=== PATIENT | female | born 1985 | race Asian ===

== ENCOUNTER 2018-09-07 08:16 | Emergency (ER) | payer OTHER ==
[2018-09-07 08:36] VITALS: BP 111/72; PULSE 95; TEMP 99; BMI 22.2
[2018-09-07] MEDS ORDERED: ALBUTEROL SO4 2.5/IPRATROPIUM 0.5 INH SOL 3 ML VIAL.NEB. NEB ONE ×2 (09:08→09:11)
--- NOTE | 2018-09-07 09:15 | PDOC ---
History of Present Illness - General Chief Complaint: Cold Symptoms Stated Complaint: COUGH Time Seen by Provider: 09/07/18 08:50 History Source: Patient Exam Limitations: No Limitations - History of Present Illness Initial Comments: 09/07/18 09:09 32 yr female with c/o cough for 3 days . no fever no chills, taking robitussin no relief. Pt has history of RA on folic acid, methotrexate, prednisone. pt denies chest pain or shortness of breath. Past History - Past Medical History Allergies/Adverse Reactions: Allergies Allergy/AdvReac Type Severity Reaction Status Date / Time No Known Allergies Allergy Verified 09/07/18 09:08 Home Medications: Ambulatory Orders NK [No Known Home Medication] 09/07/18 COPD: No CHF: No DVT: No Thyroid Disease: No Other medical history: RHEUMATOID ARTHRITIS - Surgical History Appendectomy: No Cholecystectomy: No GI Surgery: No - Immunization History Immunization Up to Date: No - Suicide/Smoking/Psychosocial Hx Smoking History: Never smoked Have you smoked in the past 12 months: No Information on smoking cessation initiated: No Hx Alcohol Use: No Drug/Substance Use Hx: No Substance Use Type: None Respiratory Specific PMHX - Complaint Specific PMHX Angina: No Bronchitis: No Pneumonia: No Pulmonary Embolus: No TB (Tuberculosis): No Review of Systems - Review of Systems Able to Perform ROS?: Yes Is the patient limited [place] proficient: No Constitutional: No: Symptoms Reported HEENTM: No: Symptoms Reported Respiratory: Yes: Symptoms reported, Cough. No: Shortness of Breath, SOB with Exertion, SOB at Rest, Wheezing, Productive cough Cardiac (ROS): No: Symptoms Reported ABD/GI: No: Symptoms Reported *Physical Exam - Vital Signs Last Vital Signs Temp Pulse Resp BP Pulse Ox 99.0 F 95 H 18 111/72 97 09/07/18 08:22 09/07/18 08:22 09/07/18 08:22 09/07/18 08:22 09/07/18 08:22 - Physical Exam General Appearance: Yes: Nourished, Appropriately Dressed HEENT: positive: EOMI, TARAS, TMs Normal, Nasal Congestion Neck: positive: Supple. negative: Tender Respiratory/Chest: positive: Lungs Clear, Normal Breath Sounds, Other (hoarse cough ). negative: Chest Tender Cardiovascular: positive: Regular Rhythm, Regular Rate Musculoskeletal: positive: Normal Inspection Extremity: positive: Normal Capillary Refill, Normal Range of Motion Integumentary: positive: Normal Color, Dry, Warm Neurologic: positive: tank refinisher II-XII NML intact, Fully Oriented, Alert, Normal Mood/ Affect, Normal Response, Motor Strength 03/19 Medical Decision Making - Medical Decision Making 09/07/18 09:11 cc: cough 3 days dry cough more loose today no fever no chills, no chest pain no abd pain *DC/Admit/Observation/Transfer Diagnosis at time of Disposition: Viral URI with cough - Discharge Dispostion Disposition: HOME Condition at time of disposition: Good - Referrals Referrals: Landon Villarreal [Primary Care Provider] - - Patient Instructions Printed Discharge Instructions: DI for Common Cold Additional Instructions: drink pleanty of fluids , throat lozengers for cough as needed increase vitamin C intake such as Lisa C packets, in local drug store may be in the cold medicine isle use Vicks Rub to chest and back follow with your doctor in 1-2 days if any worsening symptoms - Post Discharge Activity
== END 2018-09-07 09:34 | disposition home or self-care (01) ==
LOC: JERFT 08:16 → JER 08:16 → JERFT 09:34
PROC: 3E0F7GC Introduction of Other Therapeutic Substance into Respiratory Tract, Via Natural or Artificial Opening (ICD-10-PCS; principal; 2018-09-07)
DX: J06.9 Acute upper respiratory infection, unspecified (principal); B97.89 Other viral agents as the cause of diseases classified elsewhere; M06.9 Rheumatoid arthritis, unspecified
CPT/HCPCS: 94640; 99281-25

== ENCOUNTER 2019-10-27 17:28 | Emergency (ER) | payer BC, OTHER ==
[2019-10-27 17:40] VITALS: BP 126/92; PULSE 106; TEMP 98; BMI 22.2
[2019-10-27 19:47] LABS: BASO % 1.3 % (0-2.0); EOS % 12.9 % (0-4.5); HEMATOCRIT 38.2 % (32.4-45.2); HEMOGLOBIN 12.7 GM/dL (10.7-15.3); LYMPH % 24.7 % (8-40); MCH 29.3 pg (25.7-33.7); MCHC 33.2 g/dl (32.0-36.0); MEAN CELL VOLUME 88.3 fl (80-96); MEAN PLT VOLUME 7.9 fl (7.5-11.1); MONO % 7.1 % (3.8-10.2); PLATELET COUNT 311 K/MM3 (134-434); RBC 4.32 M/mm3 (3.60-5.2); RDW 13.9 % (11.6-15.6); WHITE BLOOD COUNT 9.1 K/mm3 (4.0-10.0)
[2019-10-27 20:26] LABS: ALBUMIN 3.8 g/dl (3.4-5.0); BILIRUBIN,TOTAL 0.1 mg/dL (0.2-1); BLOOD UREA NITROGEN 10.9 mg/dL (7-18); CREATININE 0.6 mg/dL (0.55-1.3); TOT PROT 7.4 g/dl (6.4-8.2)
--- NOTE | 2019-10-27 20:59 | PDOC ---
Documentation entered by Cary Loyola SCRIBE, acting as scribe for Bernarda Reyna MD. Bernarda Reyna MD: This documentation has been prepared by the narayaneNir Joy, SCRIBE, under my direction and personally reviewed by me in its entirety. I confirm that the documentation accurately reflects all work, treatment, procedures, and medical decision making performed by me. History of Present Illness - General Chief Complaint: Vaginal Bleeding Stated Complaint: VAGINAL BLEEDING Time Seen by Provider: 10/27/19 17:43 History Source: Patient Exam Limitations: No Limitations - History of Present Illness Initial Comments: 10/27/19 20:04 The patient is a 34 year old female with no significant past medical history who presents to the ED today with heavier than normal vaginal bleeding. As per patient, she has been experiencing vaginal bleeding for 2 months. Patient states she has seen her primary [employer] for her symptoms but it has not resolved. Patient states she goes through 1-2 pads per day. Patient endorses her last known menstrual cycle was September 2019. The patient denies chest pain, shortness of breath, headache and dizziness. The patient denies fever, chills, nausea, vomiting, abdominal pain, diarrhea, and constipation. Denies dysuria, frequency, urgency and hematuria. Allergies: NKA Social Hx: Not reported. PCP: Dr. Maria Victoria Ochoa Past History - Past Medical History Allergies/Adverse Reactions: Allergies Allergy/AdvReac Type Severity Reaction Status Date / Time No Known Allergies Allergy Verified 10/27/19 17:37 Home Medications: Ambulatory Orders NK [No Known Home Medication] 09/07/18 COPD: No CHF: No DVT: No Thyroid Disease: No - Surgical History Appendectomy: No Cholecystectomy: No GI Surgery: No - Immunization History Immunization Up to Date: No - Psycho Social/Smoking Cessation Hx Smoking History: Never smoked Have you smoked in the past 12 months: No Hx Alcohol Use: No Drug/Substance Use Hx: No Substance Use Type: None Review of Systems - Review of Systems Able to Perform ROS?: Yes Comments:: 10/27/19 20:09 GENERAL/CONSTITUTIONAL: No fever or chills. No weakness. HEAD, EYES, EARS, NOSE AND THROAT: No change in vision. No ear pain or discharge. No sore throat. CARDIOVASCULAR: No chest pain or shortness of breath. RESPIRATORY: No cough, wheezing, or hemoptysis. GASTROINTESTINAL: No nausea, vomiting, diarrhea or constipation. GENITOURINARY: +Heavy vaginal bleeding. No dysuria, frequency, or change in urination. MUSCULOSKELETAL: No joint or muscle swelling or pain. No neck or back pain. SKIN: No rash NEUROLOGIC: No headache, vertigo, loss of consciousness, or change in strength/ sensation. ENDOCRINE: No increased thirst. No abnormal weight change. HEMATOLOGIC/LYMPHATIC: No anemia, easy bleeding, or history of blood clots. ALLERGIC/IMMUNOLOGIC: No hives or skin allergy. *Physical Exam - Vital Signs Last Vital Signs Temp Pulse Resp BP Pulse Ox 98.0 F 106 H 17 126/92 98 10/27/19 17:37 10/27/19 17:37 10/27/19 17:37 10/27/19 17:37 10/27/19 17:37 - Physical Exam 10/27/19 20:10 GENERAL: Awake, alert, and fully oriented, in no acute distress HEAD: No signs of trauma EYES: PERRLA, EOMI, sclera anicteric, conjunctiva clear ENT: Auricles normal inspection, hearing grossly normal, nares patent, oropharynx clear without exudates. Moist mucosa NECK: Normal ROM, supple, no lymphadenopathy, JVD, or masses LUNGS: Breath sounds equal, clear to auscultation bilaterally. No wheezes, and no crackles HEART: Regular rate and rhythm, normal S1 and S2, no murmurs, rubs or gallops ABDOMEN: Soft, nontender, normoactive bowel sounds. No guarding, no rebound. No masses. PELVIC: +Moderate bleeding. EXTREMITIES: Normal range of motion, no edema. No clubbing or cyanosis. No cords, erythema, or tenderness NEUROLOGICAL: Cranial nerves II through XII grossly intact. Normal speech, normal gait SKIN: Warm, Dry, normal turgor, no rashes or lesions noted. ED Treatment Course - LABORATORY CBC & Chemistry Diagram: 10/27/19 19:34 10/27/19 19:34 - ADDITIONAL ORDERS Additional order review: 10/27/19 19:34 RBC 4.32 MCV 88.3 MCHC 33.2 RDW 13.9 MPV 7.9 Neutrophils % 54.0 Lymphocytes % 24.7 Monocytes % 7.1 Eosinophils % 12.9 H Basophils % 1.3 Medical Decision Making - Medical Decision Making 10/27/19 20:20 Pt presents to the ED complaining of a two month history of vaginal bleeding that was worse today. Only moderate bleeding observed on pelvic exam. Will check labs to rule out severe anemia or and likely discharge home if negative. 10/27/19 20:58 Discharge - Discharge Information Problems reviewed: Yes Clinical Impression/Diagnosis: Vaginal bleeding Condition: Good Disposition: HOME - Admission No - Follow up/Referral Referrals: Maria Victoria Ochoa MD [Primary Care Provider] - - Patient Discharge Instructions Patient Printed Discharge Instructions: DI for Vaginal Bleeding Additional Instructions: you came to the ED for vaginal bleeding. We did a pelvic exam, which showed only moderate bleeding, and labs which did not show anemia. You should call your on call pharmacy technician on Wednesday to make a follow up appointment. Return to the ED for severe bleeding, soaking through one pad per hour for two hours in a row, passing out, severe abdominal pain, other new or worsening symptoms. - Post Discharge Activity
[2019-10-27 21:31] LABS: INR 0.93 (0.83-1.09)
[2019-10-27 21:34] LABS: ACTIVATED PTT 34.5 SECONDS (25.2-36.5)
== END 2019-10-27 22:27 | disposition home or self-care (01) ==
LOC: JER 17:28
DX: N93.9 Abnormal uterine and vaginal bleeding, unspecified (principal)
CPT/HCPCS: 36415; 80053; 84703; 85025; 85610; 85730; 86850; 86900; 86901; 99283-25